=== PATIENT | female | born 1965 | race Caucasian/White ===

== ENCOUNTER 2018-05-02 12:25 | Emergency (ER) | payer OTHER ==
--- NOTE | 2018-05-02 12:49 | EDM.PDOC ---
ED HPI GENERAL MEDICAL PROBLEM - General Chief Complaint: Headache Stated Complaint: MIGRAINE Time Seen by Provider: 05/02/18 12:49 Source of Information: Reports: Patient History Limitations: Reports: No Limitations - History of Present Illness INITIAL COMMENTS - FREE TEXT/NARRATIVE: c/o migraine, stress type today with vomiting x3. Hx migraine FELIPE but not for 2- 3 years. Admits this as more stress and pain to back of neck. Notes recent divorce, move and now worried about layoff at job. Headache Pain Score (Numeric/FACES): 10 - Related Data Allergies Allergy/AdvReac Type Severity Reaction Status Date / Time albuterol Allergy Difficulty Verified 05/02/18 12:32 Breathing cefuroxime [From Ceftin] Allergy Headache Verified 05/02/18 12:32 Past Medical History HEENT History: Reports: Allergic Rhinitis, Sinusitis Cardiovascular History: Reports: Other (See Below) Other Cardiovascular History: "swelling in ankles on HCTZ for it" SECOND CHEF History: Reports: Musculoskeletal History: Reports: Arthritis Neurological History: Reports: Migraines Endocrine/Metabolic History: Reports: Obesity/BMI 30+ - Infectious Disease History Infectious Disease History: Reports: Chicken Pox - Past Surgical History HEENT Surgical History: Reports: Tonsillectomy GI Surgical History: Reports: Appendectomy Musculoskeletal Surgical History: Reports: Other (See Below) Other Musculoskeletal Surgeries/Procedures:: meniscus surgery Social & Family History - Family History Family Medical History: Noncontributory - Tobacco Use Smoking Status *Q: Never Smoker - Caffeine Use Caffeine Use: Reports: Soda - Recreational Drug Use Recreational Drug Use: No ED ROS GENERAL - Review of Systems Review Of Systems: ROS reveals no pertinent complaints other than HPI. - Physical Exam Exam: See Below Exam Limited By: No Limitations General Appearance: Alert Eye Exam: Bilateral Eye: EOMI Ears: Normal External Exam Nose: Normal Inspection Throat/Mouth: Normal Inspection, Normal Lips Head Exam: Atraumatic, Normocephalic Neck: Normal Inspection, Full Range of Motion Respiratory/Chest: No Respiratory Distress, Lungs Clear, Normal Breath Sounds Cardiovascular: Normal Peripheral Pulses, Regular Rate, Rhythm GI/Abdominal: Normal Bowel Sounds, Soft, Non-Tender Neuro Exam (Abbreviated): Alert, Oriented, Normal Cognition, Normal Gait Back Exam: Normal Inspection Extremities: Normal Inspection Psychiatric: Depressed Mood, Tearful Skin Exam: Warm, Dry, Intact Course - Vital Signs Last Recorded V/S: Last Vital Signs Temp 97.4 F 05/02/18 12:46 Pulse 72 05/02/18 12:46 Resp 16 05/02/18 12:46 BP 164/103 H 05/02/18 12:46 Pulse Ox 99 05/02/18 12:46 - Orders/Labs/Meds Meds: Medications Discontinued Medications Generic Name Dose Route Start Last Admin Trade Name Mando PRN Reason Stop Dose Admin Butorphanol Tartrate 1 mg 05/02/18 14:06 05/02/18 14:11 Stadol IM 05/02/18 14:07 1 mg ONETIME ONE Administration Diphenhydramine HCl 25 mg 05/02/18 12:52 05/02/18 13:16 Benadryl IVPUSH 05/02/18 12:53 Not Given ONETIME ONE Diphenhydramine HCl 25 mg 05/02/18 13:12 05/02/18 13:18 Benadryl IM 05/02/18 13:13 25 mg ONETIME ONE Administration Sodium Chloride 1,000 mls @ 999 mls/hr 05/02/18 12:49 05/02/18 13:17 Normal Saline IV 05/02/18 13:49 Not Given .BOLUS ONE Ketorolac Tromethamine 30 mg 05/02/18 12:49 05/02/18 13:16 Toradol IVPUSH 05/02/18 12:50 Not Given ONETIME ONE Ketorolac Tromethamine 30 mg 05/02/18 13:12 05/02/18 13:18 Toradol IM 05/02/18 13:13 30 mg ONETIME ONE Administration Ondansetron HCl 4 mg 05/02/18 12:49 05/02/18 13:16 Zofran IV 05/02/18 12:50 Not Given ONETIME ONE Ondansetron HCl 4 mg 05/02/18 13:12 05/02/18 13:18 Zofran IM 05/02/18 13:13 4 mg ONETIME ONE Administration Departure - Departure Time of Disposition: 14:20 Disposition: Home, Self-Care 01 Condition: Good Clinical Impression: Stress headache - Discharge Information Instructions: Tension Headache, Adult Referrals: Carissa Cedeno MD [Primary Care Provider] - Forms: ED Department Discharge Additional Instructions: rest light activity, encourage fluids advance diet as tolerated zofran 4mg ODT every 6 hours as needed for nausea #8 tylenol, or ibuprofen for discomfort, may alternate every 4 hours as needed
[2018-05-02] MEDS: Ondansetron 4 MG/2 ML SDV IV ONE ×2 (12:57→13:16)
[2018-05-02] MEDS: Sodium Chloride 0.9% 1,000 ML IV ONE ×2 (12:57→13:17)
[2018-05-02] MEDS: Ketorolac 30 MG/ML SDV IVPUSH ONE ×2 (12:57→13:16)
[2018-05-02] MEDS: diphenhydrAMINE 50 MG/ML SDV IVPUSH ONE ×2 (13:00→13:16)
[2018-05-02] MEDS ORDERED: Ondansetron 4 MG/2 ML SDV IM ONE (13:12)
[2018-05-02] MEDS ORDERED: Ketorolac 30 MG/ML SDV IM ONE (13:12)
[2018-05-02] MEDS ORDERED: diphenhydrAMINE 50 MG/ML SDV IM ONE (13:12)
[2018-05-02] MEDS ORDERED: Butorphanol 2 MG/ML SDV IM ONE (14:06)
== END 2018-05-02 14:33 | disposition home or self-care (01) ==
LOC: DL.ED 12:25
DX: R51 Headache (principal); E66.9 Obesity, unspecified; Z88.8 Allergy status to other drugs, medicaments and biological substances
CPT/HCPCS: 96372; 99283; J0595; J1200; J1885; J2405; J7030

== ENCOUNTER 2022-12-06 18:39 | Emergency (ER) | payer BC ==
[2022-12-06] MEDS ORDERED: Codeine/guaiFENesin 10-100 MG/5 ML Syrup 5 ML Cup PO ONE ×2 (18:40→19:33)
[2022-12-06] MEDS ORDERED: Sodium Chloride 0.9% 10 ML Syringe FLUSH PRN (18:56)
[2022-12-06] MEDS ORDERED: Benzonatate 100 MG Cap PO ONE (19:34)
[2022-12-06] MEDS ORDERED: Sodium Chloride 0.9% 1,000 ML IV ONE ×2 (19:51→20:56)
[2022-12-06 19:55] LABS: ANION GAP 13.4 mEq/L (7-13)
[2022-12-06] MEDS ORDERED: Ketorolac 30 MG/ML SDV IVPUSH ONE (20:10)
[2022-12-06] MEDS ORDERED: Acetaminophen 500 MG Tab PO ONE (20:10)
[2022-12-06] MEDS ORDERED: Codeine/guaiFENesin 10-100 MG/5 ML Syrup 5 ML Cup ONE (22:48)
== END 2022-12-06 22:53 | disposition home or self-care (01) ==
LOC: DL.ED 18:39
DX: J10.1 Influenza due to other identified influenza virus with other respiratory manifestations (principal); E87.20 Acidosis, unspecified; E66.9 Obesity, unspecified; Z68.41 Body mass index [BMI] 40.0-44.9, adult; Z88.1 Allergy status to other antibiotic agents; Z88.8 Allergy status to other drugs, medicaments and biological substances; Z79.899 Other long term (current) drug therapy
CPT/HCPCS: 36415; 71045; 80053; 82150; 83605; 83690; 83735; 83880; 84443; 84484; 85025; 86140; 93005; 96361; 96374; 99285; A9270; J1885; J3490; J7030

== ENCOUNTER 2024-05-01 13:15 | Emergency (ER) | payer BC ==
[2024-05-01] MEDS: Acetaminophen 500 MG Tab PO ONE (15:45)
[2024-05-01] MEDS: Dexamethasone 4 MG/ML SDV IM ONE (15:45)
== END 2024-05-01 15:50 ==
LOC: DL.ED 13:15
DX: U07.1 COVID-19 (principal); E66.9 Obesity, unspecified; Z88.8 Allergy status to other drugs, medicaments and biological substances; Z79.899 Other long term (current) drug therapy; Z86.16 Personal history of COVID-19; Z90.49 Acquired absence of other specified parts of digestive tract
CPT/HCPCS: 87635; 87804; 96372; 99283; A9270; J1100; U0002